=== PATIENT | female | born 1960 | race Caucasian/White ===

== ENCOUNTER 2022-12-11 09:11 | Day surgery (SDC) | payer OTHER ==
[~2022-12-11] VITALS: Ht 149.9 cm; Wt 79.9 kg
[~2022-12-11 09:11] MED LIST: ERGO400 PO; MULVITA PO
--- NOTE | 2022-12-11 10:56 | NUR ---
12/11/22 1056 Orlando Carpenter HISTORY, CHART, MEDICATIONS AND ALLERGIES REVIEWED BEFORE START OF PROCEDURE. PATIENT CONFIRMS NPO STATUS AND AGREES WITH SCHEDULED PROCEDURE. 3-LEAD EKG REVIEWED WITH PHYSICIAN PRIOR TO START OF PROCEDURE. MONITOR INTACT WITH CONTINUOUS PULSE OXIMETRY,CAPNOGRAPHY, 3-LEAD EKG, INTERMITTENT BP. SUPPLEMENTAL O2 TO BE TITRATED THROUGHOUT PROCEDURE TO MAINTAIN O2 SATURATION ABOVE 90%. PATIENT DETERMINED TO BE ASA APPROPRIATE FOR PROPOFOL SEDATION PRIOR TO START OF PROCEDURE BY
--- NOTE | 2022-12-11 11:34 | NUR ---
REPORT RECEIVED FROM SERGO MCKEON RN. VSS. PT REPORTS NO PAIN OR DISCOMFORT. PT ABLE TO REPOSITION SELF IN BED. PT REQUESTING PO FLUIDS AND TOLERATING THEM WELL.
--- NOTE | 2022-12-11 11:50 | NUR ---
Patient up to Ambulate independently. Gait steady. Discharge instructions reviewed with patient. Patient verbalizes understanding. Copy given to patient to take home. Patient States Post-Procedure ride home has been arranged. Discharged via wheelchair to private car for ride home. PT BELONGINGS RETURNED TO PT.
== END 2022-12-11 23:00 | disposition home or self-care (01) ==
LOC: ORSCMMR 09:11 → ORD 09:30 → ORSCMMR 09:30
PROVIDERS: Internal Medicine Gastroenterology
PROC: 0DJD8ZZ Inspection of Lower Intestinal Tract, Via Natural or Artificial Opening Endoscopic (ICD-10-PCS; principal; 2022-12-11 09:30)
DX: Z12.11 Encounter for screening for malignant neoplasm of colon (principal); K64.8 Other hemorrhoids
CPT/HCPCS: J2704; J7120